=== PATIENT | male | born 1950 | race Caucasian/White ===

== ENCOUNTER 2016-12-05 14:28 | Emergency (ER) | payer MEDICARE ==
[2016-12-05 14:33] VITALS: TEMP 97.2
[2016-12-05 14:48] VITALS: BMI 44.9
[2016-12-05 15:06] LABS: AUTOMATED BASOPHIL 0.1 % (0-2); AUTOMATED EOSINOPHIL 1.9 % (0-5); AUTOMATED LYMPH 16.3 % (17-44); AUTOMATED NEUTROPHIL 73.7 % (45-76); MPV 8.3 fL (7.4-10.4)
[2016-12-05 15:19] LABS: PARTIAL THROMB. TIME 31.1 SEC (22-35); PT-INR 1.2
[2016-12-05 15:23] LABS: BLOOD UREA NITROGEN 16 MG/DL (9-20); CALC CORRECTED 9.1 MG/DL (8.4-10.2); CALCIUM 8.8 MG/DL (8.4-10.2); CALCULATED OSMOLALITY 271 MOs/Kg (270-290); CHLORIDE 107 mEq/L (98-107); GLUCOSE 111 mg/dL (70-99); SODIUM LEVEL 140 mEq/L (137-146); TOTAL PROTEIN 7.7 G/DL (6.3-8.2)
[2016-12-05] MEDS ORDERED: SODIUM CHLORIDE 0.9% 10 ML FLUSH FLUSH PRN (15:38)
[2016-12-05] MEDS ORDERED: ONDANSETRON HCL 4 MG/2 ML VIAL IV ONE (15:39)
[2016-12-05] MEDS ORDERED: MORPHINE 4 MG/ML INJECTION IV ONE (15:39)
[2016-12-05] MEDS ORDERED: NS 500 ML IV ONE (15:39)
--- NOTE | 2016-12-05 15:42 | EDPRACDOC ---
- General Information Chief Complaint: Chest Pain Stated Complaint: CP ABD PAIN Time Seen by Provider: 12/05/16 15:30 Information Source: Patient Mode of Arrival: Car Home Medications: Home Medications Amlodipine [Norvasc] 10 mg PO DAILY 10/20/15 Atorvastatin Calcium 10 mg PO HS 12/29/15 Fluoxetine [Prozac] 20 mg PO DAILY 12/29/15 Prazosin [Minipres] 2 mg PO HS 12/29/15 Lisinopril [Zestril] 10 mg PO DAILY #30 tablet 12/30/15 Pregabalin [Lyrica] 50 mg PO DAILY 01/18/16 Pantoprazole Sodium [Protonix] 40 mg PO DAILY #30 tab 01/19/16 CloNIDine (Antihypertensive) [Catapres] 0.1 mg PO HS 02/01/16 Lorazepam [Ativan] 2 mg PO BID PRN 02/01/16 Potassium Chloride 10 meq PO DAILY #30 tab.er.prt 02/01/16 Quetiapine Fumarate [Seroquel] 25 mg PO BID 09/03/16 Cyanocobalamin (Vitamin B-12) [Vitamin B-12] 1,000 mcg PO DAILY 09/07/16 Ferrous Sulfate [Iron] 325 mg PO DAILY 09/07/16 Multivit-Min/FA/Lycopene/Lut [Centrum Silver Tablet] 1 tab PO DAILY 09/07/16 Buspirone HCl [Buspar] 15 mg PO TID 09/09/16 Ondansetron HCl [Zofran] 4 mg PO Q8H PRN #15 tab 12/05/16 Oxycodone Immediate Release [Oxycodone Immediate Release (OxyIR)] 5 mg PO Q6H PRN #15 tab 12/05/16 Rivaroxaban [Xarelto] 20 mg PO QHS 12/05/16 Allergies/Adverse Reactions: Allergies Allergy/AdvReac Type Severity Reaction Status Date / Time No Known Allergies Allergy Verified 12/05/16 14:46 - History of Present Illness Onset: 1400 HPI: Pt c/o substernal chest pain, R side abd pain, nausea, syncope x 1 day. C/o chills, green productive cough, diarrhea x 3-4 days. Denies earache, sore throat , sob, changes in bladder, leg swelling, rash. Chest Pain Location: Reports: Substernal, Left Chest Pain Radiation: Reports: Abdomen Symptoms Occur: Reports: Gradually Cardiac Risk Factors: Reports: Hyperlipidemia, Hypertension, Diabetes Pain Came On: Reports: Suddenly Pain Status: Present Now Pain Description: Reports: Pressure, Aching Pain Severity: Mild Pain Worsens With: Reports: Nothing Pain Improves With: Reports: Nitroglycerin Associated Signs and Symptoms: Reports: Abdominal Pain, Nausea ED Past Medical History - History Reviewed Yes Nurses notes reviewed and agree except as marked - Patient Medical History Neurological History: Reports: Cerebrovascular Accident (10/2015 LEFT SIDED WEAKNESS.. RESOLVED) Cardiac History: Reports: Coronary Artery Disease, Atrial Fibrillation, Hypertension, Heart Attack, Cardiac Catheterization (2009), Stress Test (02/24/15 : NEGATIVE stress test. EF 54%.), Hypercholesterolemia, Pacemaker (03/2016 DR. [place]IGUEZ [place]), Valvular Heart Disease Respiratory History: Reports: COPD, Pneumonia GI/ History: Reports: Renal Disease, Kidney (Renal Surgery), Urinary Tract Infection, Kidney Stones, Gastroesophageal Reflux, Ulcer (GASTRIC) Musculoskeletal History: Reports: Arthritis, Osteoarthritis (and chronic, mild left sided weakness.) Psychological History: Reports: Anxiety, Bipolar Disorder (and CONVERSION DISORDER. PTSD.). Denies: Substance Use Disorder Systemic History: Reports: Anemia (IRON DEFICIENCY), Diabetes. Denies: Cancer Surgical History: Reports: Cholecystectomy, Cardiac Catheterization (2009), Hernia Surgery, Other (Gastric bypass. Back and shoulder surgeries. Recent kidney stone extraction) - Family Medical History Reports: Hypertension (father, mother), Cancer (father- leukemia), Stroke ( mother). Denies: Diabetes, Cardiac Disorders - Social Medical History Smoking Status: Former smoker Social History: Denies: Barbiturate Use, Benzodiazipine Use, Substance Use Disorder ETOH: None Substance Abuse: None EDM Review of Systems - Review of Systems Eyes: No Symptoms Reported. negative: Redness, Blurred Vision, Double Vision, Discharge, Pain, Light Sensitive, Photophobia Ears: No Symptoms Reported. negative: Pain, Hearing Loss, Drainage, Ear Pulling Throat: No Symptoms Reported. negative: Pain, Swelling Nose: Congestion Mouth: No Symptoms Reported. negative: Pain, Drooling Respiratory: Cough Cardiovascular: Chest Pain, Syncope Gastrointestinal: Nausea, Pain Genitourinary: No Symptoms Reported. negative: Dysuria, Hematuria, Frequency, Discharge, Bleeding, Testicular Pain, Neurological: No Symptoms Reported. negative: Headache, Dizziness, Seizure, Numbness, Weakness, Speech Difficulty, Gait Difficulty Musculoskeletal: No Symptoms Reported. negative: Neck, Chestwall, Ribs, Back, Shoulder, Arm, Elbow, Forearm, Wrist, Hand, Pelvis, Hip, Femur, Knee, Leg, Ankle , Foot Integumentary: No Symptoms Reported. negative: Itching, Rash, Bruising, Wound Allergic/Immunologic: No Symptoms Reported. negative: Hives, Itching Hematologic: No Symptoms Reported. negative: Lymphadenopathy, Easy Bruising, Easy Bleeding Psychiatric: No Symptoms Reported. negative: Anxiety, Depression, Hallucinations, Insomnia, Suicidal - Physical Exam Constitutional: Alert Oriented to: Time, Person, Place Last recorded Vital Signs: Last Vital Signs Temp 97.2 F L 12/05/16 14:28 Pulse 60 12/05/16 14:50 Resp 20 12/05/16 14:50 BP 134/83 12/05/16 14:50 Pulse Ox 96 12/05/16 14:50 Oxygen Pulse Oxygen Saturation 96 O2 Device Room Air Oxygen Flow Rate Fraction of Inspired Oxygen ( FIO2) - HEENT Head: Normal ( normocephalic) Eye Exam: Normal (PERRL, EOMI, Sclera white) Oropharynx: Normal (Pharynx:Moist without exudate,Gums-no swelling) Tympanic Membrane: Normal ENT EAC: Normal Nose: No Symptoms Reported (septum midline) Neck: Normal (FROM, trachea at midline) - Respiratory/Cardiovascular Respiratory: Normal - CTA (BBS clear to auscultation without adventitious sounds ) Cardiovascular: Normal (RRR without murmur, gallop or rub) - GI Auscultation: Normal (NABS) Palpation: Normal (Soft,No rebound or guarding, non distended) Tenderness: Moderate, RUQ, RLQ - Musculoskeletal Back: Normal (Non-Tender) Extremities: Normal (Normal tone, Pulses 2+ No cyanosis or edema, FROM) - Integumentary Skin: Normal, Warm, Dry Lymphatics: Normal (no adenopathy) - Neurologic Memory Impaired: Normal Motor Function: Normal (Normal tone, Pulses 2+ No cyanosis or edema, FROM) Mood Description: Normal Perception: Normal ED Chest Pain Exam - Respiratory/Cardiovascular Respiratory: Normal - CTA (clear to auscultation without adventitious sounds) Cardiovascular/Chest: Normal (RRR without murmur, gallop or rub) Radial Pulse: Normal Edema: negative: 1+, 2+, 3+, 4+, 5, 6 Chest Palpation: Normal (No chest tenderness) - Differential Diagnosis Angina, Aortic dissection, Esophageal reflux/spasm, Gastritis, Myocardial infarction, Pancreatitis, Pneumonia - Action ASA given in the ED: No - Results 12/05/16 14:57 12/05/16 14:57 WBC 9.8 xk/uL (3.8-10.8) 12/05/16 14:57 RBC 5.20 xM/uL (4.70-6.10) 12/05/16 14:57 Hgb 13.4 g/dL (14.0-18.0) L 12/05/16 14:57 Hct 40.9 % (42-52) L 12/05/16 14:57 MCV 79 fL (80-94) L 12/05/16 14:57 MCH 25.7 pg (27-32) L 12/05/16 14:57 MCHC 32.7 g/dl (33-36) L 12/05/16 14:57 RDW 17.2 % (11.5-14.5) H 12/05/16 14:57 Plt Count 319 xk/uL (130-400) 12/05/16 14:57 MPV 8.3 fL (7.4-10.4) 12/05/16 14:57 Neut % (Auto) 73.7 % (45-76) 12/05/16 14:57 Lymph % (Auto) 16.3 % (17-44) L 12/05/16 14:57 Graham % (Auto) 8.0 % (3-10) 12/05/16 14:57 Eos % (Auto) 1.9 % (0-5) 12/05/16 14:57 Baso % (Auto) 0.1 % (0-2) 12/05/16 14:57 Absolute Neuts (auto) 7.15 xk/uL (1.7-8.2) 12/05/16 14:57 Absolute Lymphs (auto) 1.57 xk/uL (0.65-4.75) 12/05/16 14:57 PT 12.8 SEC (9.2-11.2) H 12/05/16 14:57 INR 1.2 12/05/16 14:57 APTT 31.1 SEC (22-35) 12/05/16 14:57 Sodium 140 mEq/L (137-146) 12/05/16 14:57 Potassium 4.2 mEq/L (3.5-5.1) 12/05/16 14:57 Chloride 107 mEq/L (98-107) 12/05/16 14:57 Carbon Dioxide 24 mMOL/L (22-33) 12/05/16 14:57 Anion Gap 13 mEq/L (8-16) 12/05/16 14:57 BUN 16 MG/DL (9-20) 12/05/16 14:57 Creatinine 0.90 MG/DL (0.66-1.25) 12/05/16 14:57 Estimated GFR (MDRD) > 60 mL/min (>=60) 12/05/16 14:57 Glucose 111 mg/dL (70-99) H 12/05/16 14:57 Calculated Osmolality 271 MOs/Kg (270-290) 12/05/16 14:57 Calcium 8.8 MG/DL (8.4-10.2) 12/05/16 14:57 Corrected Calcium 9.1 MG/DL (8.4-10.2) 12/05/16 14:57 Total Bilirubin 0.6 MG/DL (0.2-1.3) 12/05/16 14:57 AST 32 IU/L (17-59) 12/05/16 14:57 ALT 25 IU/L (21-72) 12/05/16 14:57 Alkaline Phosphatase 144 IU/L (50-160) 12/05/16 14:57 Troponin I < 0.01 ng/mL (<.04) 12/05/16 14:57 Bjg-H-Prjmifauzue Pept 1310 pg/mL (0-900) H 12/05/16 14:57 Total Protein 7.7 G/DL (6.3-8.2) 12/05/16 14:57 Albumin 3.7 G/DL (3.5-5.0) 12/05/16 14:57 Lab Results 12/05/16 12/05/16 12/05/16 14:57 14:57 14:57 WBC 9.8 RBC 5.20 Hgb 13.4 L Hct 40.9 L MCV 79 L MCH 25.7 L MCHC 32.7 L RDW 17.2 H Plt Count 319 MPV 8.3 Neut % (Auto) 73.7 Lymph % (Auto) 16.3 L Graham % (Auto) 8.0 Eos % (Auto) 1.9 Baso % (Auto) 0.1 Absolute Neuts (auto) 7.15 Absolute Lymphs (auto) 1.57 PT 12.8 H INR 1.2 APTT 31.1 Sodium 140 Potassium 4.2 Chloride 107 Carbon Dioxide 24 Anion Gap 13 BUN 16 Creatinine 0.90 Estimated GFR (MDRD) > 60 Glucose 111 H Calculated Osmolality 271 Calcium 8.8 Corrected Calcium 9.1 Total Bilirubin 0.6 AST 32 ALT 25 Alkaline Phosphatase 144 Troponin I < 0.01 Nll-R-Lxbvgivanww Pept 1310 H Total Protein 7.7 Albumin 3.7 Laboratory Results - last 24 hr 12/05/16 12/05/16 12/05/16 14:57 14:57 14:57 WBC 9.8 RBC 5.20 Hgb 13.4 L Hct 40.9 L MCV 79 L MCH 25.7 L MCHC 32.7 L RDW 17.2 H Plt Count 319 MPV 8.3 Neut % (Auto) 73.7 Lymph % (Auto) 16.3 L Graham % (Auto) 8.0 Eos % (Auto) 1.9 Baso % (Auto) 0.1 Absolute Neuts (auto) 7.15 Absolute Lymphs (auto) 1.57 PT 12.8 H INR 1.2 APTT 31.1 Sodium 140 Potassium 4.2 Chloride 107 Carbon Dioxide 24 Anion Gap 13 BUN 16 Creatinine 0.90 Estimated GFR (MDRD) > 60 Glucose 111 H Calculated Osmolality 271 Calcium 8.8 Corrected Calcium 9.1 Total Bilirubin 0.6 AST 32 ALT 25 Alkaline Phosphatase 144 Troponin I < 0.01 Pxe-W-Hxtmkiqcuia Pept 1310 H Total Protein 7.7 Albumin 3.7 Laboratory Results 12/05/16 14:57 12/05/16 14:57 - EKG EKG #1 EKG Time: 14:50 Rate: bpm: 89 Dearing: LAD Rhythm: Paced ST: Nonsp - Diagnostic Imaging Head Image interpreted by: Radiologist IMPRESSION: No acute intracranial findings. Similar appearance to priors. Abdomen Image interpreted by: Radiologist FINDINGS: CTA CHEST FINDINGS Mediastinum: The pulmonary arteries are well opacified with contrast. There is no evidence of acute pulmonary embolism. There is mild atherosclerosis of the aorta, great vessels and coronary arteries. The heart is enlarged. There is no pericardial effusion.Patient has a pacemaker. There are no enlarged mediastinal, hilar or axillary lymph nodes. There is a small hiatal hernia. Lungs/Pleura: There is no pleural effusion.The lungs are clear. Musculoskeletal/Chest wall: There is asymmetric periareolar soft tissue on the right which may reflect asymmetric gynecomastia. No other chest wall lesion or suspicious osseous findings. Review of the MIP images confirms the above findings. CTA ABDOMEN AND PELVIS FINDINGS Hepatobiliary: The liver is normal in density without focal abnormality. No significant biliary dilatation status post cholecystectomy. Pancreas: Mildly atrophied. No focal lesion or surrounding inflammatory change. Spleen: Normal in size without focal abnormality. Adrenals/Urinary Tract: Both adrenal glands appear normal. There is stable cortical scarring in the lower pole the right kidney. No evidence of renal mass or hydronephrosis. Assessment renal calculi limited by imaging after contrast excretion. The bladder appears unremarkable. Stomach/Bowel: No evidence of bowel wall thickening, distention or surrounding inflammatory change. There are postsurgical changes consistent with previous gastric bypass. Vascular/Lymphatic: There are no enlarged abdominal or pelvic lymph nodes. Mild aortoiliac atherosclerosis noted. Infrarenal IVC filter is noted without evidence of strut fracture or organ penetration/involvement. Reproductive: The prostate gland appears stable with central dystrophic calcifications. Other: Stable right upper quadrant ventral abdominal wall hernia containing only fat. Musculoskeletal: No acute or significant osseous findings. Lower lumbar spondylosis noted. Review of the MIP images confirms the above findings. IMPRESSION: 1. No evidence of acute pulmonary embolism or other acute chest process. 2. No acute abdominal pelvic findings. 3. Stable right upper quadrant ventral hernia containing only fat. 4. Asymmetric right periareolar soft tissue density in the upper chest, potentially asymmetric gynecomastia. Correlation with physical examination recommended to exclude mass. - Additional Information Stress test 12/30/15 negative with EF 49% Decision Time to Discharge: 18:47 - Departure Disposition: Home Condition: Good Final Diagnosis: Hematuria, Near syncope Chest pain Qualifiers: Chest pain type: unspecified Qualified Code(s): R07.9 - Chest pain, unspecified Abdominal pain Qualifiers: Abdominal location: generalized Qualified Code(s): R10.84 - Generalized abdominal pain Instructions: Chest Pain (ED), Chest Wall Pain (ED), Non-pharmacological Pain Management Therapies for Adults (GEN), Abdominal Pain (ED) Education/Counseling Given To: Patient Education/Counseling Given Regarding: Diagnosis, Treatment, Follow Up Referrals: Grayson Quijano MD [Primary Care Provider] - One Week Prescriptions: New Ondansetron HCl [Zofran] 4 mg PO Q8H PRN #15 tab PRN Reason: Nausea/Vomiting Oxycodone Immediate Release [Oxycodone Immediate Release (OxyIR)] 5 mg PO Q6H PRN #15 tab PRN Reason: Pain No Action Amlodipine [Norvasc] 10 mg PO DAILY Fluoxetine [Prozac] 20 mg PO DAILY Atorvastatin Calcium 10 mg PO HS Prazosin [Minipres] 2 mg PO HS Lisinopril [Zestril] 10 mg PO DAILY #30 tablet Pregabalin [Lyrica] 50 mg PO DAILY Pantoprazole Sodium [Protonix] 40 mg PO DAILY #30 tab CloNIDine (Antihypertensive) [Catapres] 0.1 mg PO HS Lorazepam [Ativan] 2 mg PO BID PRN PRN Reason: Anxiety Potassium Chloride 10 meq PO DAILY #30 tab.er.prt Quetiapine Fumarate [Seroquel] 25 mg PO BID Cyanocobalamin (Vitamin B-12) [Vitamin B-12] 1,000 mcg PO DAILY Multivit-Min/FA/Lycopene/Lut [Centrum Silver Tablet] 1 tab PO DAILY Ferrous Sulfate [Iron] 325 mg PO DAILY Buspirone HCl [Buspar] 15 mg PO TID Rivaroxaban [Xarelto] 20 mg PO QHS Additional Instructions: Return for worse or different symptoms.
--- NOTE | 2016-12-05 15:59 | DIRPT ---
CLINICAL DATA: Chest pain EXAM: CHEST 2 VIEW COMPARISON: 09/05/2016 FINDINGS: Hypoventilation with bibasilar atelectasis. Cardiac enlargement without heart failure. Dual lead pacemaker. IMPRESSION: Hypoventilation with bibasilar atelectasis. Electronically Signed By: Emmett Mc M.D. On: 12/05/2016 15:56
[2016-12-05] MEDS ORDERED: Pharmacy Review for Metformin - IV Contrast Given SCH (16:00)
[2016-12-05] MEDS ORDERED: NS 1,000 ML IV SCH (16:00)
[2016-12-05 17:05] LABS: AMORPHOUS 1+; CA OXALATE 2+; LEUKOCYTES/URINE NEG (NEGATIVE); NITRITE/URINE NEG (NEGATIVE); URINE OCCULT BLOOD 1+ (NEG/TRACE); WBC/URINE 0-2 (0-2)
--- NOTE | 2016-12-05 17:15 | DIRPT ---
CLINICAL DATA: Headache. Duration unspecified. EXAM: CT HEAD WITHOUT CONTRAST TECHNIQUE: Contiguous axial images were obtained from the base of the skull through the vertex without intravenous contrast. COMPARISON: 09/09/2016. FINDINGS: No evidence for acute infarction, hemorrhage, mass lesion, hydrocephalus, or extra-axial fluid. Mild cerebral and cerebellar atrophy. Hypoattenuation of white matter suggesting chronic microvascular ischemic change. Calvarium intact. Vascular calcification. No sinus or mastoid disease. IMPRESSION: No acute intracranial findings. Similar appearance to priors. Electronically Signed By: Rome Gonsalez M.D. On: 12/05/2016 17:12
--- NOTE | 2016-12-05 17:28 | DIRPT ---
CLINICAL DATA: Left upper chest and right lower quadrant abdominal pain with wheezing, cough and headaches. Syncopal episode. EXAM: CT ANGIOGRAPHY CHEST, ABDOMEN AND PELVIS TECHNIQUE: Multidetector CT imaging through the chest, abdomen and pelvis was performed using the standard protocol during bolus administration of intravenous contrast. Multiplanar reconstructed images and MIPs were obtained and reviewed to evaluate the vascular anatomy. CONTRAST: 100 ml Isovue 370. COMPARISON: Abdominal pelvic CT 09/18/2006) FINDINGS: CTA CHEST FINDINGS Mediastinum: The pulmonary arteries are well opacified with contrast. There is no evidence of acute pulmonary embolism. There is mild atherosclerosis of the aorta, great vessels and coronary arteries. The heart is enlarged. There is no pericardial effusion.Patient has a pacemaker. There are no enlarged mediastinal, hilar or axillary lymph nodes. There is a small hiatal hernia. Lungs/Pleura: There is no pleural effusion.The lungs are clear. Musculoskeletal/Chest wall: There is asymmetric periareolar soft tissue on the right which may reflect asymmetric gynecomastia. No other chest wall lesion or suspicious osseous findings. Review of the MIP images confirms the above findings. CTA ABDOMEN AND PELVIS FINDINGS Hepatobiliary: The liver is normal in density without focal abnormality. No significant biliary dilatation status post cholecystectomy. Pancreas: Mildly atrophied. No focal lesion or surrounding inflammatory change. Spleen: Normal in size without focal abnormality. Adrenals/Urinary Tract: Both adrenal glands appear normal. There is stable cortical scarring in the lower pole the right kidney. No evidence of renal mass or hydronephrosis. Assessment renal calculi limited by imaging after contrast excretion. The bladder appears unremarkable. Stomach/Bowel: No evidence of bowel wall thickening, distention or surrounding inflammatory change. There are postsurgical changes consistent with previous gastric bypass. Vascular/Lymphatic: There are no enlarged abdominal or pelvic lymph nodes. Mild aortoiliac atherosclerosis noted. Infrarenal IVC filter is noted without evidence of strut fracture or organ penetration/involvement. Reproductive: The prostate gland appears stable with central dystrophic calcifications. Other: Stable right upper quadrant ventral abdominal wall hernia containing only fat. Musculoskeletal: No acute or significant osseous findings. Lower lumbar spondylosis noted. Review of the MIP images confirms the above findings. IMPRESSION: 1. No evidence of acute pulmonary embolism or other acute chest process. 2. No acute abdominal pelvic findings. 3. Stable right upper quadrant ventral hernia containing only fat. 4. Asymmetric right periareolar soft tissue density in the upper chest, potentially asymmetric gynecomastia. Correlation with physical examination recommended to exclude mass. Electronically Signed By: Himanshu Reyes M.D. On: 12/05/2016 17:25
[2016-12-05] MEDS: MORPHINE 4 MG/ML INJECTION IV ONE ×2 (17:38→17:50)
[2016-12-05] MEDS: ONDANSETRON HCL 4 MG/2 ML VIAL IV ONE ×2 (17:39→17:50)
[2016-12-05] MEDS ORDERED: OXYCODONE HCL 5 MG TABLET PO ONE (17:46)
[2016-12-05] MEDS ORDERED: ONDANSETRON HCL 4 MG ODT TAB PO ONE (17:46)
[2016-12-05 18:56] VITALS: BP 138/70; PULSE 60
== END 2016-12-05 18:55 | disposition home or self-care (01) ==
LOC: ED 14:28
DX: R31.9 Hematuria, unspecified (principal); R55 Syncope and collapse; R07.9 Chest pain, unspecified; R10.84 Generalized abdominal pain
CPT/HCPCS: 36415; 70450; 71020; 71275; 74174; 80053; 81001; 83605; 83880; 84484; 85025; 85610; 85730; 93005; 96361; 96374; 96375; 96376; 99285; A9270; A9698; J2270; J2405; J3490